=== PATIENT | female | born 1965 | race Two or more races ===

== ENCOUNTER 2021-03-23 05:38 | Day surgery (SDC) | payer OTHER ==
[~2021-03-23 05:38] MED LIST: NORVASC5 MG PO; VITAMIN D PO; ZESTRIL20 MG PO
== END 2021-03-23 13:20 | disposition home or self-care (01) ==
LOC: CIR.AMB 05:38
PROVIDERS: ATTEND Orthopaedic Surgery Hand Surgery
DX: M65.312 Trigger thumb, left thumb (principal); Z20.822 Contact with and (suspected) exposure to COVID-19